=== PATIENT | male | born 1970 | race Asian ===

== ENCOUNTER 2021-03-22 11:52 | Emergency (ER) | payer MEDICAID ==
[~2021-03-22] VITALS: Ht 172.7 cm; Wt 74.0 kg
[2021-03-22] MEDS ORDERED: LIDOCAINE 5% (LIDODERM) PATCH TD ONE (14:55)
[2021-03-22] MEDS ORDERED: BIOF4GEL4 TOP (15:52)
[2021-03-22 17:05] VITALS: BP 155/94
[2021-03-22] MEDS ORDERED: **NOTE PATIENT COMMENT** MISC XX SCH (21:00)
== END 2021-03-22 17:10 | disposition home or self-care (01) ==
LOC: M ED 11:52
DX: M25.552 Pain in left hip (principal); M79.641 Pain in right hand; M79.642 Pain in left hand; R19.7 Diarrhea, unspecified

== ENCOUNTER → 2021-04-22 | Outpatient (CLI) | payer MEDICAID ==
[~2021-04-22] MED LIST: BIOF4GEL4 TOP
== END ==
LOC: M SOG 09:00
PROVIDERS: ATTEND Orthopaedic Surgery Adult Reconstructive Orthopaedic Surgery
DX: M54.32 Sciatica, left side (principal); M47.817 Spondylosis without myelopathy or radiculopathy, lumbosacral region

== ENCOUNTER → 2021-05-03 | Outpatient (CLI) | payer MEDICAID | LOC: M SOG 09:09 | PROVIDERS: ATTEND Physician Assistant | DX: M85.841 Other specified disorders of bone density and structure, right hand (principal); M85.842 Other specified disorders of bone density and structure, left hand; M79.641 Pain in right hand; M79.642 Pain in left hand ==